=== PATIENT | male | born 1985 | race Caucasian/White ===

== ENCOUNTER 2023-06-01 07:17 | Outpatient (REF) | payer MEDICAID, SELFPAY ==
--- NOTE | ~2023-06-01 | XR_ITS ---
EXAMINATION: XR ORBITS CLINICAL INFORMATION: Clearance for MRI, history of retained metal in eyes. COMPARISON: None available. TECHNIQUE: Yost, frontal and lateral views were acquired FINDINGS: Examination of the facial bones and orbits shows no fracture or bone lesion. No metallic foreign body is evident. XR/XR pre mri screening IMPRESSION: No metallic foreign body or bone lesion. Patient cleared for MRI.
--- NOTE | ~2023-06-01 | MR_ITS ---
EXAMINATION: MR LUMBAR SPINE WITHOUT CONTRAST CLINICAL INFORMATION: Prior fall. Low back pain. Bilateral lower extremity radicular symptoms. COMPARISON: None available. TECHNIQUE: Multiplanar, multisequence imaging was obtained. Limited study with motion artifacts. FINDINGS: VERTEBRAL BODIES AND PARASPINAL STRUCTURES: There is incompletely visualized marrow edema in the lower portion of the right sacral ala on the STIR-weighted acquisition. Mild amount of edema also visible in the right lateral presacral soft tissues. There is a severe chronic compression fracture deformity at the T12 level, with osseous retropulsion mildly impressing upon the ventral thecal sac. No lower cord compression otherwise evident. There is a [id number] chronic superior endplate compression deformity as well, with a prominent Schmorl's node at the T11 level. Mildly reduced intradiscal signal evident at the L4-L5 and L5-S1 levels. The paraspinal soft tissues appear normal. There are [id number] degenerative changes of the sacroiliac joints. CONUS MEDULLARIS AND CAUDA EQUINE: The distal cord, conus tip, and cauda equina nerve roots appear normal. SPINAL LEVELS: L1-L2: Mild loss of disc height and very mild disc bulge without central canal stenosis or foraminal narrowing. L2-L3: No significant disc pathology. No central canal stenosis or foraminal narrowing. L3-L4: Normal appearance of the disc with mild facet arthrosis. No central canal stenosis. [id number]-mb-[id number] foraminal narrowing bilaterally. L4-L5: Reduced intradiscal signal and diffuse disc bulge with [id number] facet arthropathy. No central canal stenosis. Bulging disc encroaches upon the subarticular zones and contacts the traversing L5 nerve roots bilaterally. Severe bilateral foraminal encroachment with posterolateral disc protrusions and small underlying annular tears. Findings in conjunction with facet spurring result in mass effect upon the exiting L4 nerve roots bilaterally. L5-S1: Mild generalized disc bulge. No central canal stenosis. Bulging disc and endplate spurring moderately encroach upon the right neural foramen, contacting the exiting right L5 nerve root. MR/MR lumbar spine wo con IMPRESSION: 1. Incompletely visualized marrow edema in the lower portion of the right sacral ala, with mild amount of edema in the right lateral sacral soft tissues. Findings may be due to an underlying sacral fracture. If clinically warranted, further evaluation with a dedicated MRI of the sacrum without contrast could be considered in follow-up. 2. Diffuse disc bulge at the L4-L5 level, encroaching upon the subarticular zones and contacting the L5 nerve roots. Severe bilateral foraminal encroachment from posterolateral disc protrusions and facet spurring resulting in mass effect upon both exiting L4 nerve roots. 3. Bulging disc and endplate spurring at the L5-S1 level, with moderate right foraminal encroachment and mild distortion of the exiting right L5 nerve root. 4. Chronic compression fractures at the T11 and T12 levels, worse at the T12 level with osseous retropulsion mildly impressing upon the ventral thecal sac. Findings reported to Dr. Stephens at 9:06 AM on 06/06/2023.
== END 2023-06-01 07:18 | disposition home or self-care (01) ==
LOC: HO.MRI 07:17
PROVIDERS: PCP Family Medicine; Visit Provider Physical Medicine & Rehabilitation
DX: M54.16 Radiculopathy, lumbar region (principal)
CPT/HCPCS: 72148

== ENCOUNTER 2023-06-10 10:21 | Outpatient (REF) | payer MEDICAID, SELFPAY ==
--- NOTE | ~2023-06-10 | MR_ITS ---
EXAMINATION: MR PELVIS WITHOUT CONTRAST CLINICAL INFORMATION: Pain. Question fracture of the right sacrum seen on lumbar spine MRI COMPARISON: Lumbar spine MRI dated 06/01/2023 TECHNIQUE: Multiplanar MR imaging was obtained through the pelvis on a 1.5 Jessenia magnet without intravenous contrast material. Images were optimized to limit hardware artifact around the hip prostheses FINDINGS: FINDINGS: OSSEOUS PELVIS: Again seen is focal marrow edema signal within the right sacral ala at the level of S2 and S3 with a corresponding region of ill-defined low signal intensity on T1-weighted images. Subtle linearity is suspected on coronal images, raising the possibility of a sacral ala fracture. No significant displacement. No discrete lesion is identified underlying this abnormality. There is a separate region of marrow edema signal at the left anterosuperior iliac spine with associated loss of normal fat signal intensity on T1-weighted images, potentially corresponding to an osseous contusion. Two adjacent smaller foci of marrow edema signal are present in this region measuring 8 and 5 mm in diameter. No additional areas of marrow signal abnormality identified in the osseous pelvis. Metal artifact surrounding the prosthetic components of both hips limits the assessment of the immediately adjacent tissues including both the surrounding bone and soft tissues. This limitation is mitigated by the optimized MRI sequences. No acute findings are identified in these regions. FLUID AND BURSAE: Trace amount of fluid in the right hip joint, within normal limits. No additional effusions. No bursitis. MUSCULATURE: There is fatty replacement of the short external rotator musculature bilaterally. Edema signal within the right piriformis muscle is likely reactive to the adjacent abnormality at the sacrum. No appreciable tendon tears. INTRAPELVIC SOFT TISSUES: No adenopathy. Bladder wall is thickened with mild trabeculation. NERVES: No appreciable sites of focal mass effect of the lumbar trunks, sacral plexus, sciatic nerves, femoral nerves. MR/MR pelvis wo con IMPRESSION: Focal marrow edema signal in the right sacral ala at the level of S2 and S3 is concerning for a nondisplaced sacral ala fracture. Similarly, smaller foci of marrow edema signal in the left anterior superior iliac spine may correspond to osseous contusions. Recommend correlation for recent history of injury. Sensitivity for small osseous lesions is limited. Consider long interval follow-up MRI to verify resolution of the marrow abnormality.
== END 2023-06-10 10:22 | disposition home or self-care (01) ==
LOC: HO.MRI 10:21
PROVIDERS: PCP Family Medicine; Visit Provider Physical Medicine & Rehabilitation
DX: M48.48XA Fatigue fracture of vertebra, sacral and sacrococcygeal region, initial encounter for fracture (principal)
CPT/HCPCS: 72195

== ENCOUNTER 2023-07-21 06:46 | Outpatient (REF) | payer MEDICAID, SELFPAY ==
[2023-07-21 08:41] LABS: Calcium 10.4 mg/dL (8.4-10.2); Phosphorus 3.6 mg/dL (2.7-4.5)
[2023-07-21 08:51] LABS: Vitamin D 25-OH Total 17.3 ng/mL (>30)
[2023-07-24 22:53] LABS: Alkaline Phosphatase Bone 13.1 mcg/L (7.0-18.3)
== END 2023-07-21 06:47 | disposition home or self-care (01) ==
LOC: HO.LAB 06:46
PROVIDERS: Obstetrics & Gynecology Reproductive Endocrinology; PCP Family Medicine
DX: M81.8 Other osteoporosis without current pathological fracture (principal)
CPT/HCPCS: 36415; 82306; 82310; 84075; 84100

== ENCOUNTER 2023-07-23 07:58 | Outpatient (REF) | payer MEDICAID, SELFPAY ==
[2023-07-25 21:44] LABS: Calcium, 24 Hr Urine 180 mg/24 h; Calcium/Creatinine Ratio 118 mg/g creat (30-210); Creatinine 24Hr Urine 1.53 g/24 h (0.50-2.15)
[2023-07-27 09:38] LABS: PEU-PROT/CRE Ratio mg/mg 0.067 (<0.100); PEU24-Albumin Urine 100 %; PEU24-Alpha 1 Globulin 0 %; PEU24-Alpha 2 Globulin 0 %; PEU24-Beta Globulin 0 %; PEU24-Gamma Globulin 0 %; Total Protein 24Hr Urine 108 mg/24 h (<150); Total Protein/Creat Ratio 24h 67 mg/g creat (<100)
== END 2023-07-23 07:59 | disposition home or self-care (01) ==
LOC: HO.LNP 07:58
PROVIDERS: Visit Provider Obstetrics & Gynecology Reproductive Endocrinology
DX: M81.8 Other osteoporosis without current pathological fracture (principal)
CPT/HCPCS: 82340; 82570; 84156; 84166